=== PATIENT | male | born 1990 | race African-American/Black ===

== ENCOUNTER 2016-06-22 18:53 | Emergency (ER) | payer OTHER ==
[2016-06-22 18:59] VITALS: BP 121/64
[2016-06-22] MEDS ORDERED: Ketorolac INJ* 60 MG/2 ML VIAL IM ONE (19:25)
[2016-06-22] MEDS ORDERED: Cyclobenzaprine TAB* 10 MG PO ONE ×2 (19:25→19:32)
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
== END 2016-06-22 19:42 | disposition home or self-care (01) ==
LOC: ED 18:53
DX: M54.2 Cervicalgia (principal); M54.9 Dorsalgia, unspecified; G89.29 Other chronic pain; F32.9 Major depressive disorder, single episode, unspecified
CPT/HCPCS: 96372; 99282; A9270-GY; J1885

== ENCOUNTER 2016-09-08 19:39 | Emergency (ER) | payer OTHER ==
[2016-09-08] MEDS ORDERED: Albuterol/Ipratropium NEB.SOL* Albuterol 2.5 MG/Ipratropium 0.5 MG 3 ML INH ONE (19:44)
[2016-09-08 19:45] VITALS: BP 98/74
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
== END 2016-09-08 20:42 | disposition home or self-care (01) ==
LOC: ED 19:39
DX: J45.909 Unspecified asthma, uncomplicated (principal); R05 Cough; R07.9 Chest pain, unspecified; F17.210 Nicotine dependence, cigarettes, uncomplicated
CPT/HCPCS: 99282; A9270-GY

== ENCOUNTER 2016-11-07 22:13 | Emergency (ER) | payer OTHER ==
[2016-11-07 22:29] VITALS: BP 112/54
[2016-11-07] MEDS ORDERED: diPHENhydraMINE PO* 25 MG PO ONE (23:51)
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
== END 2016-11-08 01:16 | disposition home or self-care (01) ==
LOC: ED 22:13
DX: L25.9 Unspecified contact dermatitis, unspecified cause (principal); F17.200 Nicotine dependence, unspecified, uncomplicated; J45.909 Unspecified asthma, uncomplicated
CPT/HCPCS: 99281; A9270-GY

== ENCOUNTER 2016-12-18 00:09 | Emergency (ER) | payer OTHER ==
[2016-12-18] MEDS ORDERED: Ibuprofen TAB* 600 MG PO ONE (01:19)
[2016-12-18 01:33] VITALS: BP 115/71
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
[2016-12-18] MEDS ORDERED: Triamcinolone 0.5% OINT * 15 GM TUBE TOPICAL SCH (09:00)
== END 2016-12-18 01:54 | disposition home or self-care (01) ==
LOC: ED 00:09
DX: L73.0 Acne keloid (principal); R06.02 Shortness of breath; H92.09 Otalgia, unspecified ear; F17.210 Nicotine dependence, cigarettes, uncomplicated
CPT/HCPCS: 99281; A9270-GY

== ENCOUNTER 2016-12-21 19:00 | Emergency (ER) | payer OTHER ==
[2016-12-21 19:27] VITALS: BP 111/59
== END 2016-12-21 20:55 | disposition home or self-care (01) ==
LOC: ED 19:00
DX: S99.919A Unspecified injury of unspecified ankle, initial encounter (principal); X58.XXXA Exposure to other specified factors, initial encounter; Y92.9 Unspecified place or not applicable; Z53.21 Procedure and treatment not carried out due to patient leaving prior to being seen by health care provider
CPT/HCPCS: 99281

== ENCOUNTER 2017-04-03 14:46 | Emergency (ER) | payer OTHER ==
[2017-04-03 15:06] VITALS: BP 130/70
[2017-04-03] MEDS ORDERED: Cephalexin CAP* 500 MG PO ONE (15:39)
[2017-04-03] MEDS ORDERED: Ibuprofen TAB* 800 MG PO ONE (15:39)
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
== END 2017-04-03 16:13 | disposition home or self-care (01) ==
LOC: ED 14:46
DX: L03.115 Cellulitis of right lower limb (principal); F32.9 Major depressive disorder, single episode, unspecified; F17.200 Nicotine dependence, unspecified, uncomplicated
CPT/HCPCS: 99282; A9270-GY

== ENCOUNTER → 2018-10-18 12:22 | Emergency (ER) | payer OTHER ==
[2018-10-18 12:29] VITALS: BP 116/73
== END | disposition left against medical advice (07) ==
LOC: ED 12:22
DX: M54.9 Dorsalgia, unspecified (principal); Z53.21 Procedure and treatment not carried out due to patient leaving prior to being seen by health care provider

== ENCOUNTER 2018-12-14 17:20 | Emergency (ER) | payer OTHER ==
[2018-12-14] MEDS ORDERED: Benzonatate CAP* 100 MG PO ONE (17:55)
[2018-12-14] MEDS ORDERED: Albuterol/Ipratropium NEB.SOL* Albuterol 2.5 MG/Ipratropium 0.5 MG 3 ML INH ONE (17:55)
[2018-12-14] MEDS ORDERED: predniSONE TAB* 20 MG PO ONE (17:55)
--- NOTE | 2018-12-14 17:56 | ED ---
Respiratory - HPI Summary HPI Summary: Patient complains of pain with deep inhalation, productive cough, chest pain with cough, nasal congestion, sweats, chills 3 days. Denies known fever, sore throat, ear pain, MANDUJANO, neck stiffness, N/V/D, abdominal pain, change in urine, change in BM. Medical history is asthma. Has an inhaler at home. - History of Current Complaint Chief Complaint: EDUpperRespComplaint Stated Complaint: DIFFICULTY BREATHING, CONGESTION PER PT Time Seen by Provider: 12/14/18 17:48 Hx Obtained From: Patient Onset/Duration: Gradual Onset, Lasting Days Timing: Constant Initial Severity: Moderate Current Severity: Moderate Pain Intensity: 7 Character: Cough (Productive) Sputum Amount: Small Sputum Color: Green Aggravating Factor(s): Nothing Alleviating Factor(s): MDI (Frequency Of Use) Associated Signs and Symptoms: SOB, Chest Pain with Cough, Nasal Congestion - Allergy/Home Medications Allergies/Adverse Reactions: Allergies Allergy/AdvReac Type Severity Reaction Status Date / Time shellfish derived Allergy Anaphylatic Verified 12/14/18 17:22 Shock Seafood Allergy Severe Anaphylatic Uncoded 12/14/18 17:22 Shock PMH/Surg Hx/FS Hx/Imm Hx Endocrine/Hematology History: Denies: Hx Anticoagulant Therapy, Hx Blood Disorders, Hx Diabetes Cardiovascular History: Denies: Hx Hypertension, Hx Pacemaker/ICD Respiratory History: Reports: Hx Asthma - no current medication/exercise induced History: Denies: Hx Dialysis Musculoskeletal History: Reports: Hx Back Problems - neck Sensory History: Denies: Hx Eye Prosthesis Opthamlomology History: Denies: Hx Legally Blind EENT History: Denies: Hx Deafness Neurological History: Denies: Hx Dementia Psychiatric History: Reports: Hx Depression, Hx of Violent Episodes Against Others, Other Psychiatric Issues/Disorders - anger issues per patient Denies: Hx Eating Disorder - Surgical History Surgery Procedure, Year, and Place: none - Immunization History Date of Tetanus Vaccine: unknown Date of Influenza Vaccine: never Infectious Disease History: No Infectious Disease History: Denies: Hx of Known/Suspected MRSA, Traveled Outside the [place] in Last 30 Days - Family History Known Family History: Positive: Other - depression, bipolar, schizophrenia - Social History Alcohol Use: Occasionally Alcohol Amount: bi weekly Hx Substance Use: No Substance Use Type: Reports: Marijuana Substance Use Comment - Amount & Last Used: UNKNOWN Hx Tobacco Use: Yes Smoking Status (MU): Heavy Every Day Tobacco Smoker Review of Systems Positive: Chills Eyes: Negative ENT: Negative Positive: Chest Pain Positive: Shortness Of Breath, Cough Gastrointestinal: Negative Genitourinary: Negative Musculoskeletal: Negative Skin: Negative Neurological: Negative All Other Systems Reviewed And Are Negative: Yes Physical Exam - Summary Physical Exam Summary: Mild wheezes bilaterally. RRR. Abdomen soft nontender. Triage Information Reviewed: Yes Vital Signs On Initial Exam: Initial Vitals Temp Pulse Resp BP Pulse Ox 98.8 F 75 20 114/73 96 12/14/18 17:22 12/14/18 17:22 12/14/18 17:22 12/14/18 17:22 12/14/18 17:22 Vital Signs Reviewed: Yes Appearance: Positive: Well-Appearing Skin: Positive: Warm Head/Face: Positive: Normal Head/Face Inspection Eyes: Positive: Normal ENT: Positive: Normal ENT inspection Neck: Positive: Supple Respiratory/Lung Sounds: Positive: Wheezes Cardiovascular: Positive: Normal Abdomen Description: Positive: Nontender Musculoskeletal: Positive: Normal Neurological: Positive: Normal Psychiatric: Positive: Normal AVPU Assessment: Alert - Katie Coma Scale Best Eye Response: 4 - Spontaneous Best Motor Response: 6 - Obeys Commands Best Verbal Response: 5 - Oriented Coma Scale Total: 15 Diagnostics - Vital Signs Vital Signs Temp Pulse Resp BP Pulse Ox 12/14/18 17:22 98.8 F 75 20 114/73 96 - Laboratory Lab Statement: Any lab studies that have been ordered have been reviewed, and results considered in the medical decision making process. Disposition - Course Course Of Treatment: Patient complains of pain with deep inhalation, productive cough, chest pain with cough, nasal congestion, sweats, chills 3 days. Denies known fever, sore throat, ear pain, MANDUJANO, neck stiffness, N/V/D, abdominal pain, change in urine, change in BM. Medical history is asthma. Has an inhaler at home. Vital signs within normal limits. Chest x-ray unremarkable. Patient states feels better after DuoNeb. Rx for prednisone, Z-Jalen and Tessalon Perles. Has an inhaler at home. - Diagnoses Provider Diagnoses: Respiratory infection, Asthma exacerbation Discharge - Sign-Out/Discharge Documenting (check all that apply): Patient Departure Patient Received Moderate/Deep Sedation with Procedure: No - Discharge Plan Condition: Stable Disposition: HOME Prescriptions: Azithromycin 250 mg PO DAILY 4 Days #4 tablet Benzonatate CAP* [Tessalon 100 MG CAP*] 200 mg PO TID 6 Days #40 cap predniSONE TAB* [Deltasone 20 MG TAB*] 40 mg PO DAILY 5 Days #10 tab Patient Education Materials: Upper Respiratory Infection (ED), Bronchospasm (ED ) Referrals: Montrell Cartwright MD [Medical Doctor] - Additional Instructions: Take Tessalon for cough as directed. Take azithromycin as directed. Take prednisone as directed. Use inhaler as directed. Follow-up with primary care. Return to the ED for any new or worsening symptoms. - Billing Disposition and Condition Condition: STABLE Disposition: Home
[2018-12-14] MEDS ORDERED: Azithromycin TAB* 250 MG PO ONE (19:16)
[2018-12-14 19:34] VITALS: BP 134/79
== END 2018-12-14 19:33 | disposition home or self-care (01) ==
LOC: ED 17:20
DX: J98.8 Other specified respiratory disorders (principal); J45.901 Unspecified asthma with (acute) exacerbation; F17.210 Nicotine dependence, cigarettes, uncomplicated
CPT/HCPCS: 71045; 99283; A9270-GY; J7512

== ENCOUNTER 2019-01-25 16:04 | Emergency (ER) | payer OTHER ==
[2019-01-25] MEDS ORDERED: NS 0.9% 1000 ML** 1,000 ML IV ONE (16:15)
[2019-01-25] MEDS ORDERED: ceFAZolin 2 GM PREMIX in ORs 2 GM/50 ML BAG IVPB ONE (16:15)
[2019-01-25] MEDS ORDERED: Diphth/Teta/Acell Pertusis* 0.5 ML SYR ** FOR 6 WKS TO 7 YRS OLD IM ONE (16:15)
[2019-01-25] MEDS ORDERED: Ondansetron INJ* 2 MG/ML VIAL IV ONE (16:17)
[2019-01-25] MEDS ORDERED: Morphine 4 MG/ML VIAL (1 ml) 4 MG/ML VIAL IV ONE (16:17)
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
[2019-01-25] MEDS ORDERED: Tetan/Diph/Pertus SYR(Tdap)* 0.5 ML SYR(BOOSTRIX) use SYR contains LATEX IM ONE (16:57)
[2019-01-25 17:13] LABS: Hematocrit 45 % (42-52); Hemoglobin 15.4 g/dL (14.0-18.0); Mean Corpuscular HGB Conc 34 g/dL (31-36); Mean Corpuscular Hemoglobin 34 pg (27-31); Mean Corpuscular Volume 98 fL (80-94); Mean Platelet Volume 8.8 fL (7.4-10.4); Platelet Count 231 10^3/uL (150-450); Red Blood Count 4.58 10^6 /uL (4.18-5.48); Red Cell Distribution Width 13 % (10-15); White Blood Count 4.9 10^3/uL (3.5-10.8)
[2019-01-25 17:15] LABS: ABS Eosinophils 0.1 10^3/ul (0-0.6); ABS Lymphocytes 1.1 10^3/ul (1.0-4.8); ABS Monocytes 0.4 10^3/ul (0-0.8); ABS Neutrophils 3.3 10^3/ul (1.5-7.7); Eosinophil % 2.5 %; Lymphocyte % 21.2 %; Nucleated Red Blood Cells % 0.1
[2019-01-25 17:22] LABS: Activated Partial Thrombo Time 36.3 seconds (26.0-38.0); INR 1.06 (0.82-1.09)
[2019-01-25] MEDS ORDERED: ceFAZolin 2 GM in NS PREMIX(*) 2 GM/100 ML BAG IVPB ONE (17:30)
[2019-01-25 17:34] LABS: Albumin 4.6 g/dL (3.2-5.2); Albumin/Globulin Ratio 1.8 (1-3); BUN/Creatinine Ratio 9.4 (8-20); Calcium 9.6 mg/dL (8.6-10.3); EGFR African American 82.9 (>60); EGFR Non-African American 68.6 (>60); Globulin 2.5 g/dL (2-4); Total Bilirubin 0.7 mg/dL (0.2-1.0); Total Protein 7.1 g/dL (6.4-8.9)
[2019-01-25 18:37] VITALS: BP 138/66
== END 2019-01-25 18:33 | disposition short-term general hospital (02) ==
LOC: ED 16:04
DX: T22.00XA Burn of unspecified degree of shoulder and upper limb, except wrist and hand, unspecified site, initial encounter (principal); Z23 Encounter for immunization; X95.8XXA Assault by other firearm discharge, initial encounter; Y92.9 Unspecified place or not applicable; J45.909 Unspecified asthma, uncomplicated; F32.9 Major depressive disorder, single episode, unspecified; F17.210 Nicotine dependence, cigarettes, uncomplicated
CPT/HCPCS: 36415; 80053; 82550; 85025; 85610; 85730; 90471; 90715; 96365; 96366; 96375; 99284; J0690; J2270; J2405

== ENCOUNTER 2019-01-27 00:10 | Emergency (ER) | payer OTHER ==
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
[2019-01-27 02:50] VITALS: BP 124/79
== END 2019-01-27 02:49 | disposition home or self-care (01) ==
LOC: ED 00:10
DX: T36.8X5A Adverse effect of other systemic antibiotics, initial encounter (principal); Y92.009 Unspecified place in unspecified non-institutional (private) residence as the place of occurrence of the external cause; J45.909 Unspecified asthma, uncomplicated; F17.210 Nicotine dependence, cigarettes, uncomplicated
CPT/HCPCS: 99282

== ENCOUNTER 2019-02-01 04:05 | Emergency (ER) | payer OTHER ==
[2019-02-01] MEDS ORDERED: oxyCODONE TAB* 5 MG TAB PO ONE (04:13)
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
[2019-02-01 05:00] VITALS: BP 117/56
== END 2019-02-01 05:15 | disposition home or self-care (01) ==
LOC: ED 04:05
DX: R20.0 Anesthesia of skin (principal); F17.210 Nicotine dependence, cigarettes, uncomplicated; Z88.1 Allergy status to other antibiotic agents
CPT/HCPCS: 99282; A9270-GY